=== PATIENT | female | born 1985 | race Caucasian/White ===

== ENCOUNTER 2020-09-20 01:00 | Emergency (ER) | payer OTHER ==
[~2020-09-20] VITALS: Ht 165.1 cm; Wt 90.3 kg
[~2020-09-20 01:00] MED LIST: ACETAMINOPHEN-1 EAC1 PO; CARAFATE 1 GM TA1 G1 PO; CARAFATE 1 GM TA1 GM PO; HYDROCODONE-APA1 TA1 PO; PRILOSEC20 MG PO; PROTONIX40 MG PO; SPRINTEC1 EACH
[2020-09-20] MEDS ORDERED: HYDROCHLOROTHIA25 M2 PO (01:14)
[2020-09-20] MEDS ORDERED: LISINOPRIL2.5 MG PO (01:14)
[2020-09-20] MEDS ORDERED: NORVASC 2.5 MG2.5 M1 PO (01:14)
[2020-09-20] MEDS ORDERED: LEXAPRO 10 MG T10 M2 PO (01:15)
[2020-09-20 03:56] VITALS: BP 99/59
== END 2020-09-20 03:58 | disposition home or self-care (01) ==
LOC: M.ERS 01:00
DX: S01.01XA Laceration without foreign body of scalp, initial encounter (principal); F10.129 Alcohol abuse with intoxication, unspecified; Y90.8 Blood alcohol level of 240 mg/100 ml or more; W10.8XXA Fall (on) (from) other stairs and steps, initial encounter; Y93.89 Activity, other specified; Y92.89 Other specified places as the place of occurrence of the external cause; Y99.8 Other external cause status